=== PATIENT | female | born 1990 | race Caucasian/White ===

== ENCOUNTER → 2016-05-27 | Outpatient (CLI) | payer OTHER ==
[~2016-05-27] MED LIST: ALBU17IN INH; AMOX875T2 PO; BACITAB3 PO; IBUP80TA PO; LEVO75TA4 PO; PERCOCET PO; PRENTAB13 PO; RANI1TAB6 PO; VITAPRTA PO; ZOFR4TAB3 PO
[2016-05-27 10:26] LABS: FREE T4 1.2 NG/DL (0.76-1.46)
== END ==
LOC: M LAB 08:26
PROVIDERS: ATTEND Nurse Practitioner Family
DX: E03.9 Hypothyroidism, unspecified (principal); Z13.220 Encounter for screening for lipoid disorders

== ENCOUNTER → 2016-06-27 | Outpatient (CLI) | payer OTHER ==
--- NOTE | 2016-06-27 09:43 | REP ---
Clinical: Back pain . Technique: AP, lateral, bilateral oblique, and coned-down views. Findings: Alignment and lordosis is maintained. The vertebral bodies including transverse process and spinous processes are intact and normal. There is no evidence for acute fracture / compression injury or subluxation. No evidence for spondylolysis or spondylolisthesis. No significant degenerative change is noted. Impression: Normal lumbosacral spine radiograph series. Signed by Renzo Stock MD 06/27/2016 09:35 A
--- NOTE | 2016-06-27 09:46 | REP ---
Clinical: thoracic pain. Technique: AP, lateral, and swimmers views. Findings: Frontal view demonstrates approximately 15 degrees of levoconvex scoliosis as measured from the superior endplate of T6 to the superior endplate of L1 and centered at approximately T11 level. Vertebral bodies are intact. No acute fracture / compression injury or subluxation. Paravertebral soft tissues are normal. Impression: Moderate levoconvex scoliosis. Signed by Renzo Stock MD 06/27/2016 09:37 A
== END ==
LOC: M RAD 08:48
PROVIDERS: ATTEND Nurse Practitioner Family
DX: M41.9 Scoliosis, unspecified (principal); M54.6 Pain in thoracic spine; M54.42 Lumbago with sciatica, left side

== ENCOUNTER 2016-10-01 07:20 | Outpatient (RCR) | payer OTHER | END 2016-10-02 | LOC: M PT 07:20 | PROVIDERS: ATTEND Nurse Practitioner Family | DX: Z51.89 Encounter for other specified aftercare (principal); M54.6 Pain in thoracic spine ==

== ENCOUNTER 2016-10-08 08:21 | Outpatient (RCR) | payer OTHER ==
[~2016-10-08 08:21] MED LIST changes: +BACITAB PO; -BACITAB3 PO; -PRENTAB13 PO; +PRENTAB20 PO
== END 2016-11-01 ==
LOC: M PT 08:21
PROVIDERS: ATTEND Nurse Practitioner Family
DX: Z51.89 Encounter for other specified aftercare (principal); M54.6 Pain in thoracic spine

== ENCOUNTER → 2017-02-26 | Outpatient (REF) | payer OTHER ==
[2017-02-26 12:29] LABS: FREE T4 1.17 NG/DL (0.76-1.46)
== END ==
LOC: M SFHCPLAZ 07:49
PROVIDERS: ATTEND Nurse Practitioner Family
DX: E03.9 Hypothyroidism, unspecified (principal)

== ENCOUNTER → 2017-03-21 | Outpatient (CLI) | payer OTHER ==
--- NOTE | 2017-03-24 08:31 | REP ---
MRI lumbar spine without contrast: History: Low back pain with radiculopathy affecting the left lower extremity. Comparison lumbar spine radiographs are from June 27, 2016. Technique: Sagittal and axial T1 and T2-weighted scans are acquired in the usual fashion with and without fat saturation. Sequences include spin echo, turbo spin-echo, and STIR imaging sequences. MRI findings: Lumbar vertebral body heights are preserved and alignment is normal. Disc spaces are maintained in height and signal intensity. Conus medullaris terminates at L1 normal in position and appearance. No extravertebral abnormality is observed. Normal caliber aorta. Axial and sagittal images at L5-S1 demonstrate a central small focal disc protrusion which effaces the ventral epidural fat and subtly indents the ventral margin of the thecal sac. No nerve root compression is seen. Facets are unremarkable. Pedicles and posterior elements are intact. There is no evidence of spondylolysis or spondylolisthesis. At L4-5, there is no focal disc protrusion. No neural foraminal narrowing or central canal stenosis is seen. At L3-4, L2-3, and L1-2, no abnormality is seen. Impression: Small central disc protrusion at L5-S1. Otherwise negative. Signed by William Fitzgerald MD 03/24/2017 10:52 A
== END ==
LOC: M RAD 15:39
PROVIDERS: ATTEND Nurse Practitioner Family
DX: M51.27 Other intervertebral disc displacement, lumbosacral region (principal); M54.17 Radiculopathy, lumbosacral region

== ENCOUNTER → 2018-02-16 | Outpatient (CLI) | payer OTHER ==
[2018-02-16 09:11] LABS: PROGESTERONE 20.9 NG/ML
[2018-02-16 09:11] LABS: ESTRADIOL 189.9 PG/ML
== END ==
LOC: M LAB 07:13
DX: E28.9 Ovarian dysfunction, unspecified (principal)
CPT/HCPCS: 84443

== ENCOUNTER → 2018-02-20 | Outpatient (CLI) | payer OTHER ==
[2018-02-20 08:19] LABS: HCG, SERUM QUANTITATIVE 139 MIU/ML
[2018-02-20 10:16] LABS: PROGESTERONE 23.6 NG/ML
== END ==
LOC: M LAB 07:01
DX: E28.9 Ovarian dysfunction, unspecified (principal)
CPT/HCPCS: 84702

== ENCOUNTER 2018-05-15 14:39 | Emergency (ER) | payer OTHER ==
[~2018-05-15] VITALS: Ht 172.7 cm; Wt 80.9 kg
[~2018-05-15 14:39] MED LIST changes: +ZOFR4TAB14 PO; -ZOFR4TAB3 PO
[2018-05-15 15:36] LABS: BASO % 0.1 % (0.0-1.0); EOS # 0.2 10^3/uL (0.0-0.50); EOS % 2.1 % (0.0-3.0); HEMATOCRIT 39.3 % (36.0-47.0); HEMOGLOBIN 13.3 g/dl (12.0-15.5); LYMPH % 24.9 % (24.0-44.0); MEAN CORPUSCULAR HEMOGLOBIN 30.2 pg (27.0-33.0); MEAN CORPUSCULAR HGB CONC 33.8 g/dl (32.0-36.5); MEAN CORPUSCULAR VOLUME 89.1 fl (80.0-96.0); MONO # 0.5 10^3/uL (0.0-0.8); MONO % 5.8 % (0.0-5.0); NEUTROPHILS # 5.4 10^3/uL (1.8-7.7); NEUTROPHILS % 66.7 % (36.0-66.0); PLATELET COUNT, AUTOMATED 314 10^3/uL (150-450); RED BLOOD COUNT 4.41 10^6/uL (4.00-5.40); WHITE BLOOD COUNT 8.1 10^3/uL (4.0-10.0)
[2018-05-15] MEDS ORDERED: MACR100C43 PO (16:41)
[2018-05-15 16:51] VITALS: BP 124/66
--- NOTE | 2018-05-15 17:00 | REP ---
Obstetric sonography: History: Vaginal bleeding. Sonographic findings: Scanning through the gravid uterus demonstrates a viable single intrauterine gestation in oblique, head to the maternal right lie. motion is observed and heart rate is recorded at 163 beats per minute. An anterior low lying placenta is seen without evidence of abruption. The tip of the placenta is located 0.8 cm from the internal cervical os on transvaginal imaging. Amniotic fluid is subjectively normal. No extrauterine abnormalities observed. It is too early for routine anatomic survey. Biometry chart: BPD 3.5 cm 16 weeks 6 days Head circumference 13.3 cm 16 weeks 6 days Abdominal circumference 10.8 cm 16 weeks 5 days Femur length 2.2 cm 16 weeks 5 days Humeral length 2.3 cm 16 weeks 6 days HC/AC ratio normal 1.24, cephalic index normal 0.73, estimated weight 167 grams, 0 pounds 5 ounces, 76 percentile for 16 weeks 0 days. Impression: Viable single intrauterine gestation at 16 weeks 6 days by today's composite sonographic criteria. AVIVA by today's sonography October 24, 2018. Low-lying anterior placenta is seen, 0.8 cm from the internal cervical os on transvaginal imaging. No evidence of abruption. Electronically Signed by William Fitzgerald MD 05/15/2018 06:58 P
== END 2018-05-15 16:54 | disposition home or self-care (01) ==
LOC: M ED 14:39
DX: O44.43 Low lying placenta NOS or without hemorrhage, third trimester (principal); O23.42 Unspecified infection of urinary tract in pregnancy, second trimester; O99.512 Diseases of the respiratory system complicating pregnancy, second trimester; J45.909 Unspecified asthma, uncomplicated; O99.282 Endocrine, nutritional and metabolic diseases complicating pregnancy, second trimester; E03.9 Hypothyroidism, unspecified; O99.612 Diseases of the digestive system complicating pregnancy, second trimester; K21.9 Gastro-esophageal reflux disease without esophagitis; Z88.1 Allergy status to other antibiotic agents; Z3A.16 16 weeks gestation of pregnancy

== ENCOUNTER → 2018-06-15 | Outpatient (CLI) | payer OTHER ==
[~2018-06-15] MED LIST changes: +MACR100C43 PO
--- NOTE | 2018-06-15 19:19 | REP ---
Obstetric ultrasound for anatomy: There is a single intrauterine gestation in a vertex presentation. There is motion. The heart rate is 149 beats per minute. The placenta is anterior without previa or abruptio. The placenta is grade 1 maturity. The amniotic fluid volume subjectively is normal. The cervix measures 2.7 cm length. By the ultrasound today the gestational age is 21 weeks 2 days/AVIVA 10/24/2018. Gestational age by the first ultrasound is 21 weeks 2 days. S/AVIVA 10/24/2018. Gestational age by LMP is 20 weeks 3 days/AVIVA 10/30/2018. weight is 406 grams (0 pounds, 14 ounces). This is the 75th percentile for 20 weeks 3 days. The following anatomic structures are identified and are unremarkable: Intracranial lateral ventricles, choroid plexus, cavum septum pellucidum, facial profile, upper lip, lungs, four-chamber heart, cardiac right and left ventricular outflow tracts, diaphragm, stomach, cord insertion, three-vessel cord, kidneys, bladder and upper lower extremities. Suboptimally demonstrated because of position are the intracranial posterior fossa and the spine. A followup study dedicated to these structures might be considered. Otherwise, there are no anomalies. Electronically Signed by Wilbur Zepeda MD 06/15/2018 07:11 P
== END ==
LOC: M RAD 16:29
PROVIDERS: ATTEND Specialist
DX: Z34.82 Encounter for supervision of other normal pregnancy, second trimester (principal); Z3A.21 21 weeks gestation of pregnancy

== ENCOUNTER → 2018-07-10 | Outpatient (CLI) | payer OTHER ==
--- NOTE | 2018-07-10 13:22 | REP ---
Obstetric ultrasound for follow-up of anatomy: Comparison is 06/15/2018. On the comparison study the intracranial posterior fossa and the spine were not optimally demonstrated because of position. On the study today the posterior fossa including the cerebellum and cisterna magna are adequately demonstrated and are unremarkable. The spine is adequately demonstrated and unremarkable. On the study today the choroid plexus is suboptimally demonstrated but was adequately demonstrated previously and unremarkable. The facial profile is suboptimally demonstrated was adequately demonstrated previously and was unremarkable. The kidneys were suboptimally demonstrated but were at the optimally demonstrated previously and were unremarkable. The lower extremities are suboptimally demonstrated but were optimally demonstrate previous and unremarkable. There are no anomalies. There is a single fetus in a footling breech presentation. There is movement and cardiac activity. The heart rate is 149 beats per minute. The placenta is anterior without previa or abruptio with grade 1 maturity. The amniotic fluid volume subjectively is normal. The cervix measures 2.6 cm length. Gestational age by today's ultrasound 24 weeks 6 days/AVIVA 10/24/2018. Gestational age by first ultrasound is 24-week 6 days/AVIVA 10/24/2018. Gestational age by LMP is 24-week 0 days/AVIVA 10/30/2018. weight is 720 grams/1 pound, 9 ounces. This is the 64 percentile for 24 weeks 0 days. Electronically Signed by Wilbur Zepeda MD 07/10/2018 01:12 P
== END ==
LOC: M RAD 12:03
PROVIDERS: ATTEND Specialist
DX: O09.812 Supervision of pregnancy resulting from assisted reproductive technology, second trimester (principal); Z3A.24 24 weeks gestation of pregnancy

== ENCOUNTER → 2018-07-29 | Outpatient (CLI) | payer OTHER ==
[2018-07-29 11:12] LABS: HEMATOCRIT 37.2 % (36.0-47.0); HEMOGLOBIN 12.3 g/dl (12.0-15.5); MEAN CORPUSCULAR HEMOGLOBIN 29.9 pg (27.0-33.0); MEAN CORPUSCULAR HGB CONC 33.1 g/dl (32.0-36.5); MEAN CORPUSCULAR VOLUME 90.5 fl (80.0-96.0); PLATELET COUNT, AUTOMATED 238 10^3/uL (150-450); RED BLOOD COUNT 4.11 10^6/uL (4.00-5.40); WHITE BLOOD COUNT 7.1 10^3/uL (4.0-10.0)
[2018-07-29 12:23] LABS: FREE T4 0.98 NG/DL (0.76-1.46); THYROID STIMULATING HORMONE 1.03 uIU/ML (0.358-3.740)
== END ==
LOC: M LAB 09:27
PROVIDERS: ATTEND Advanced Practice Midwife
DX: O09.812 Supervision of pregnancy resulting from assisted reproductive technology, second trimester (principal)

== ENCOUNTER → 2018-09-22 | Outpatient (CLI) | payer OTHER ==
--- NOTE | 2018-09-22 07:51 | REP ---
Clinical: Growth evaluation. Comparison: 07/10/2018 . Findings: Examination demonstrates a single live intrauterine in cephalic presentation. motion is identified by technologist. Placenta is noted anterior and grade grade 1 without evidence for placenta previa or abruption. Amniotic fluid volume is normal. Cervix measures 3.3 cm in length and appears closed. No evidence for nuchal cord. Gestational age by LMP 34 weeks 4 days with AVIVA 10/30/2018 . Gestational age by current measurements 34 weeks 5-day with AVIVA is 10/29/2018 . FHR equals 144 beats per minute. BPD 8.6 cm 34 weeks 6 days HC 31.2 cm 34 weeks 6 days AC 30.1 cm 34 weeks 1 day FL 6.8 cm 35 weeks 0 days HL 6.0 cm 35 weeks 0 days HC/AC ratio 1.04 Estimated weight 2443 grams ( 45th percentile). Amniotic fluid index: 8.7 cm (8.0 - 24.9) Umbilical cord SD ratio: 2.52 (2.00 - 3.00) Impression: Live intrauterine in cephalic presentation demonstrating appropriate interval growth. No gross abnormalities are identified. Electronically Signed by Renzo Stock MD 09/22/2018 07:42 A
== END ==
LOC: M RAD 06:17
PROVIDERS: ATTEND Advanced Practice Midwife
DX: O26.843 Uterine size-date discrepancy, third trimester (principal); Z3A.00 Weeks of gestation of pregnancy not specified

== ENCOUNTER → 2018-10-08 | Outpatient (REF) | payer OTHER ==
[~2018-10-08] MED LIST changes: +COLA100C5 PO; +LEVO50TA5 PO; +NON-325T5 PO; +PANT20TA2 PO
== END ==
LOC: M LAB REF 16:54
PROVIDERS: ATTEND Obstetrics & Gynecology
DX: Z34.83 Encounter for supervision of other normal pregnancy, third trimester (principal)

== ENCOUNTER 2018-10-12 08:57 | Inpatient (IN) | payer OTHER ==
[2018-10-12] VITALS (49 sets, daily range): BP systolic 107–163; BP diastolic 58–113
[~2018-10-12] VITALS: Ht 172.7 cm; Wt 104.4 kg
[2018-10-12] MEDS: KETOROLAC 30 MG/ML VIAL (J1885) IV SCH (03:12)
[~2018-10-12 08:57] MED LIST changes: -COLA100C5 PO; -LEVO50TA5 PO; -NON-325T5 PO; -PANT20TA2 PO
[2018-10-12] MEDS ORDERED: PANT20TA2 PO (09:25)
[2018-10-12] MEDS ORDERED: NON-325T5 PO (09:25)
[2018-10-12] MEDS ORDERED: LEVO50TA5 PO (09:25)
[2018-10-12 09:33] LABS: HEMATOCRIT 38.2 % (36.0-47.0); HEMOGLOBIN 12.9 g/dl (12.0-15.5); MEAN CORPUSCULAR HGB CONC 33.8 g/dl (32.0-36.5); MEAN CORPUSCULAR VOLUME 88.8 fl (80.0-96.0); PLATELET COUNT, AUTOMATED 245 10^3/uL (150-450); WHITE BLOOD COUNT 8.3 10^3/uL (4.0-10.0)
[2018-10-12 09:58] LABS: ALT/SGPT 18 U/L (12-78); BILIRUBIN,TOTAL 0.1 MG/DL (0.2-1.0); CREATININE FOR GFR 0.79 MG/DL (0.55-1.30); GLOMERULAR FILTRATION RATE > 60.0 (>60); LDH LACTATE DEHYDROGENASE 220 U/L (84-246); URIC ACID 6.5 MG/DL (2.6-6.0)
[2018-10-12] MEDS ORDERED: miSOPROStol 50 MCG 1/2 TAB (S0191) PO SCH (10:00)
[2018-10-12] MEDS ORDERED: OXYTOCIN DRIP 30 UNITS in APPROPRIATE DILUENT 1 EA IV SCH ×2 (10:00→20:00)
[2018-10-12] MEDS: LR 1,000 ML IV SCH ×3 (10:23→21:48)
[2018-10-12] MEDS ORDERED: MAGNESIUM *L&D* 4 GM/100 ML BAG (40MG/ML) (J3475) IV ONE (11:30)
[2018-10-12] MEDS ORDERED: MAGNESIUM SULFATE 4% INJ 20GM/500ML (40MG/ML) (J3475) As Ordered ONE (11:33)
[2018-10-12] MEDS ORDERED: MAG Sulf (OBGYN) 20GM/500ML 20,000 MG in APPROPRIATE DILUENT 1 EA IV SCH (12:00)
--- NOTE | 2018-10-12 12:11 | HPE ---
DATE OF ADMISSION: 10/12/2018 HISTORY OF PRESENT ILLNESS: Patient is a 27-year-old female who is a 2, para 1-0-0-1 at 37 weeks 3 days with an EDG of 10/30/2018 based off of her first trimester ultrasound. Her is IVF. Her has been complicated by hypothyroidism and history of cervical shortening with normal cervical length. Her also had been complicated by low lying placenta with first and second trimester bleeding that has resolved. Patient presents to the office today with complaints of a headache that has been ongoing for about two weeks and today is not resolved with Tylenol and decreased movement. She was monitored at the office and sent over the labor and delivery due to an elevated blood pressure. ALLERGIES: 1. CECLOR. 2. ROCEPHIN. CURRENT MEDICATIONS: - vitamin - levothyroxine 50 mg - Ventolin MEDICAL PROBLEMS: Asthma and meningitis as a child. CURRENT MEDICAL PROBLEMS: Asthma. Seasonal allergies. Hypothyroidism. SURGICAL HISTORY: Hernia repair. Cholecystectomy in 2014. FAMILY HISTORY: Anxiety, lupus, seizures, depression, heart disease. SOCIAL HISTORY: Patient is . She is a former smoker, quit in 2012. She denies any alcohol use or abuse, drug abuse or use. She denies any history of physical, emotional or sexual abuse. She has no history of sexually transmitted infections. PAST MEDICAL PREGNANCIES: March 2015 at 39 weeks, she had a female by vaginal delivery weighing 7 pounds 3 ounces, complicated by a short cervix, subchorionic hematoma and pancreatitis. LABS: Blood type is B negative. Her initial hemoglobin and hematocrit is 13.8 and 39.9, with platelets of 336. VDRL is nonreactive. Rubella is immune. Her urine had no growth. Hepatitis B surface antigen is negative. HIV is negative. Gonorrhea and chlamydia negative. Hepatitis C is negative. 1 hour glucose is 94. Hemoglobin and hematocrit on 07/29/2018 of 12.3 and 37.2, platelets of 238. She received RhoGAM on 08/17/2018. Her TSH and free T4 have been within normal range. Her Group B Streptococcus (GBS) is negative. VITAL SIGNS: Blood pressure is 160/113, heart rate 79, temperature 99.5, respiratory rate is 18. Repeat blood pressure is 145/92 with a heart rate of 80. Labs upon arrival: Her hemoglobin and hematocrit is 12.9 and 38.2. Her platelet count is 245. Her AST and ALT are within normal range. Her uric acid is 6.5. The spot urine ratio is 7.6. heart rate 150, moderate variability, positive accelerations, no decelerations. Contractions are occasional. STERILE VAGINAL EXAM: Cervix is 3 cm dilated, 90% effaced, -1 station and moderate amount of blood show. PHYSICAL ASSESSMENT: General: A+Ox3 Respiratory: regular rate with no use of accessory muscles. Lungs clear bilaterally. Cardiovascular: regular rate and rhythm Abdomen: Gravid and cephalic presentation noted via Lior's Extremities: +2 pitting edema. No clonus. +2 reflexes. ASSESSMENT: Intrauterine at 37 weeks 3 days gestation, preeclampsia with severe features, category 1 heart rate tracing, negative GBS. PLAN: Admit patient to labor and delivery after consulting with Dr. Montoya. Out of bed with bathroom privileges. Clear liquid diet. Saline lock and labs per unit protocol. IV Pitocin to be started per order. Anesthesia consult per patient's request. Will consider magnesium oxide during labor or post delivery after consulting with Dr. Montoya. Anticipate cervical change and spontaneous vaginal delivery. MTDD
--- NOTE | 2018-10-12 12:15 | IPNPDOC ---
Obstetrical Progress Note Date of Service Oct 12, 2018 Subjective Patient still reports a slight headache of 2/10. Objective Vital Signs Date Time Temp Pulse Resp B/P (MAP) Pulse Ox O2 Delivery O2 Flow Rate FiO2 10/12/18 12:01 94 135/92 (106) 10/12/18 11:46 99.1 16 10/12/18 09:29 Room Air Vital Signs Label Value Date Time Blood Pressure Assessment 156/109 (125) 10/12/18 1046 Source Automatic Cuff (NIBP) Blood Pressure Assessment 152/103 (119) 10/12/18 1101 Source Automatic Cuff (NIBP) Blood Pressure Assessment 163/105 (124) 10/12/18 1116 Source Automatic Cuff (NIBP) Assessment Heart Rate (FHR): 140 Variability: Moderate Accelerations: Positive Decelerations: None Heart Rate Tracing: Category I Tocometer Contractions: Yes Frequency: irregular Assessment and Plan Status: Reassuring Group B Streptococcus: Negative Anticipate: Vaginal Delivery Additional Comments After reviewing blood pressures, symptoms, and labs with Dr. Montoya the plan was made to start Magnesium per order for seizure prevention. Reviewed with patient and plan of care. All questions answered. 4 gram loading dose followed by 2 grams per hour. SANDRINE PALACIO CNM Oct 12, 2018 12:15
[2018-10-12] MEDS ORDERED: ACETAMINOPHEN 500 MG TAB PO PRN ×2 (13:15→19:45)
--- NOTE | 2018-10-12 15:29 | IPNPDOC ---
Obstetrical Progress Note Date of Service Oct 12, 2018 Subjective Patient was given Tylenol for a headache of 5/10 and reports it is back down to a tolerable 2/10. She reports feeling her contractions and is considering an epidural. Objective Vital Signs Date Time Temp Pulse Resp B/P (MAP) Pulse Ox O2 Delivery O2 Flow Rate FiO2 10/12/18 14:01 98.9 78 16 140/87 (104) 10/12/18 09:29 Room Air Assessment Heart Rate (FHR): 130 Variability: Moderate Accelerations: Positive Decelerations: None Heart Rate Tracing: Category I Tocometer Contractions: Yes Frequency: regular, every 1-5 min. Sterile Vaginal Examination Dilation: 4 cm Effacement (%): 90% Station: -1 Cervical Consistency: Soft Cervical Position: Anterior Postion/Presentation: Cephalic presentation Assessment and Plan Status: Reassuring Group B Streptococcus: Negative Anticipate: Vaginal Delivery Additional Comments IV Pitocin is at 16 mu/min. AROM to a moderate amount of clear/bloody fluid. Will continue to monitor. Urine has been 50 to less than 50 cc/hr. SANDRINE PALACIO CNM Oct 12, 2018 15:29
[2018-10-12 16:02] LABS: HEMATOCRIT 37.6 % (36.0-47.0); HEMOGLOBIN 12.6 g/dl (12.0-15.5); MEAN CORPUSCULAR HEMOGLOBIN 29.8 pg (27.0-33.0); MEAN CORPUSCULAR HGB CONC 33.5 g/dl (32.0-36.5); MEAN CORPUSCULAR VOLUME 88.9 fl (80.0-96.0); PLATELET COUNT, AUTOMATED 237 10^3/uL (150-450); RED BLOOD COUNT 4.23 10^6/uL (4.00-5.40); WHITE BLOOD COUNT 11.4 10^3/uL (4.0-10.0)
[2018-10-12] MEDS ORDERED: FENTANYL 2MCG/ML ROPIVACAINE 0.2% IN 0.9% NACL 100ML IVBAG As Ordered ONE (16:24)
--- NOTE | 2018-10-12 16:27 | IPNPDOC ---
Obstetrical Progress Note Date of Service Oct 12, 2018 Subjective Patient reports feeling rectal pressure. Requesting epidural. Objective Vital Signs Date Time Temp Pulse Resp B/P (MAP) Pulse Ox O2 Delivery O2 Flow Rate FiO2 10/12/18 14:01 98.9 78 16 140/87 (104) 10/12/18 09:29 Room Air Assessment Heart Rate (FHR): 120 Variability: Moderate Accelerations: Positive Decelerations: Variable Heart Rate Tracing: Category II Tocometer Contractions: Yes Frequency: regular Sterile Vaginal Examination Dilation: 6 cm Effacement (%): 100% Station: 0 Assessment and Plan Status: Reassuring Group B Streptococcus: Negative Anticipate: Vaginal Delivery Additional Comments IV Pitocin at 18 mu/min. Moderate amount of bloody show with cervical exam. SANDRINE PALACIO CNM Oct 12, 2018 16:27
[2018-10-12] MEDS ORDERED: EPIDURAL COMMENT XX SCH (17:15)
[2018-10-12] MEDS ORDERED: EPIDURAL/PCA KEYS XX PRN (17:15)
[2018-10-12] MEDS ORDERED: REFRIGERATOR IV KEYS XX PRN (17:15)
[2018-10-12] MEDS ORDERED: NALOXONE INJ 0.4 MG/1 ML VIAL (J2310) IV PRN ×3 (17:15→19:05)
[2018-10-12] MEDS ORDERED: diphenhydrAMINE INJ 50MG/ML VIAL (J1200) IV PRN (17:15)
[2018-10-12] MEDS ORDERED: FENTANYL/ROPIVACAINE/NACL BAG 100 ML EPIDURAL SCH (17:15)
[2018-10-12] MEDS ORDERED: ePHEDrine SULFATE 25 MG/5 ML(5MG/ML) SYRINGE IV PRN (17:15)
[2018-10-12] MEDS ORDERED: LACTATED RINGER'S 1000 ML IV PRN (17:15)
[2018-10-12] MEDS ORDERED: ONDANSETRON 4MG/2ML VIAL (J2405) IV PRN ×2 (17:15→20:30)
[2018-10-12] MEDS ORDERED: BICITRA 30ML SOLN UDC As Ordered ONE (18:29)
[2018-10-12] MEDS ORDERED: OXYTOCIN INJ 10 UNITS/ML VIAL (J2590) As Ordered ONE (18:30)
[2018-10-12] MEDS ORDERED: ceFAZolin 2 GM/D5W 50 ML IV BAG (J0690 PER 500MG) As Ordered ONE (18:31)
[2018-10-12] MEDS ORDERED: LIDOCAINE 2% W/EPIN INJ 20ML **PRES FREE As Ordered ONE (18:31)
[2018-10-12] MEDS ORDERED: MORPHINE PRES-FREE INJ 10 MG/10 ML VIAL (J2274) As Ordered ONE (18:32)
[2018-10-12] MEDS ORDERED: AZITHROMYCIN INJ 500MG VIAL (J0456) As Ordered ONE (18:35)
--- NOTE | 2018-10-12 18:43 | IPNPDOC ---
Text Note Date of Service The patient was seen on 10/12/18. NOTE Subjective: Patient reports she is comfortable with her epidural. Reports fe eling rectal pressure with her contractions. Objective: Category II FHR: 135, moderate variability, prolonged decelerations into 90's for 6 minutes, variable decelerations, positive accelerations. C ontractions every 2 to 5 minutes. Pitocin is at 18 mu. Patient is fully dilated and +1 station with pushing. With initial pushing bradycardia occurred. FHR improves when patient is positioned on her side and not pushing. Noted a moderate amount of bleeding with vaginal exam while pushing. presentation appears to be OP. Dr. Montoya notified at [phone] for evaluation and assessment. Assessment: IUP at 37.3 weeks gestation, Category II FHR tracing, preeclampsia with severe features, placental abruption Plan: Dr. Montoya to be in for evaluation. Will attempt to push again after HR is stable. VS,Fishbone, I+O VS, Fishbone, I+O Laboratory Tests 10/12/18 09:20 Red Blood Count 4.30, Mean Corpuscular Volume 88.8, Mean Corpuscular Hemoglobin 30.0, Mean Corpuscular Hemoglobin Concent 33.8, Red Cell Distribution Width 13.4, Aspartate Amino Transf (AST/SGOT) 28, Alanine Aminotransferase (ALT/SGPT) 18, Lactate Dehydrogenase 220, Total Bilirubin 0.1 L, Uric Acid 6.5 H 10/12/18 15:44 Red Blood Count 4.23, Mean Corpuscular Volume 88.9, Mean Corpuscular Hemoglobin 29.8, Mean Corpuscular Hemoglobin Concent 33.5, Red Cell Distribution Width 13.6 Vital Signs Date Time Temp Pulse Resp B/P (MAP) Pulse Ox O2 Delivery O2 Flow Rate FiO2 10/12/18 14:01 98.9 78 16 140/87 (104) 10/12/18 09:29 Room Air SANDRINE PALACIO CNM Oct 12, 2018 18:43
[2018-10-12] MEDS ORDERED: AZITHROMYCIN INJ 500 MG, VIAL MATE ADAPTER 1 EACH in D5W 250 ML IV ONE (18:45)
[2018-10-12] MEDS ORDERED: dexameTHASONE 4 MG/ML 1ML VIAL (J1100) As Ordered ONE (18:59)
[2018-10-12] MEDS ORDERED: PHENYLephrine HCL 500 MCG/5 ML (100MCG/ML) SYRINGE (J2370) As Ordered ONE (18:59)
[2018-10-12] MEDS ORDERED: ONDANSETRON 4MG/2ML VIAL (J2405) As Ordered ONE ×2 (18:59→22:43)
[2018-10-12] MEDS ORDERED: BICITRA 30ML SOLN UDC PO ONE (19:00)
[2018-10-12] MEDS ORDERED: FAMOTIDINE INJ 20MG/2ML VIAL (S0028) As Ordered ONE (19:02)
[2018-10-12] MEDS ORDERED: NALBUPHINE HCL 10 MG/ML AMP (J2300) IV PRN ×2 (19:05→20:30)
[2018-10-12 19:10] LABS: CORD GAS ABE A -9.1; CORD GAS O2 SAT A 44.2 %; CORD GAS PCO2 A 42.7 mmHg; CORD GAS PH A 7.242 UNITS; CORD GAS PO2 A 22.3 mmHg; CORD GAS SBC A 16.2 MEQ/L; CORD GAS TCO2 A 19.3 MEQ/L
[2018-10-12 19:14] LABS: CORD GAS ABE V -10.4; CORD GAS HCO3 V 15.7 MEQ/L; CORD GAS O2 SAT V 54.2 %; CORD GAS PCO2 V 35.6 mmHg; CORD GAS PH V 7.261 UNITS; CORD GAS PO2 V 25.5 mmHg; CORD GAS SBC V 15.5 MEQ/L; CORD GAS TCO2 V 16.7 MEQ/L
[2018-10-12] MEDS ORDERED: RHOGAM 300 MCG (1500 IU) INJ (J2790) IM SCH (19:45)
[2018-10-12] MEDS ORDERED: MEASLES,MUMPS,RUBELLA VACCINE INJ (MMR-II) (90707) SC SCH (19:45)
[2018-10-12] MEDS ORDERED: DOCUSATE SODIUM 100 MG CAP PO PRN (19:45)
--- NOTE | 2018-10-12 20:02 | NUR ---
Operative Note Date of procedure: 10/12/2018 Procedure: Primary low-transverse section Anesthesia: Epidural with Duramorph Preoperative diagnosis: 37+3 weeks gestation Preeclampsia with severe features Placental abruption Nonreassuring heart rate tracing Postoperative diagnosis: Same as preoperative Indication: Nonreassuring heart rate tracing in the setting of placental abruption Primary surgeon: Bryson Montoya D.O., Livia Gutierrez Equipment Inspector: Alexis Daley CNM (essential role in surgical site exposure and assistance with delivery) Estimated blood loss:700 ml IV fluids administered: 1000 ml crystalloid Drains: Bedolla catheter. Urine output:15 ml Sterling data: Apgars 4 and 9. Birthweight 6lbs 2730g. Female. Cord gases: arterial pH 7.24/-9.1. venous pH 7.26/-10.4 Preoperative/prophylactic antibiotics: Ancef 2 g IV (given within 30 minutes prior to surgical start time). Azithromycin 500mg IV x 1. Intraoperative findings: Large amount of blood clot within uterine cavity noted upon hysterotomy, consistent with placental abruption. Specimen(s): placenta Procedure: The patient was counseled and consented on the risks, benefits, indications and alternatives of the procedure. Informed consent was obtained and placed in the c bautista. She was taken to the operating room with an IV running. She was placed on the operating table. Epidural anesthesia was bolused/administered without any difficulty and found to be adequate. She was placed in the dorsal supine position with a leftward tilt. Sequential compression devices were placed on the lower extremities. A Bedolla catheter was already placed under sterile conditions. She was sterilely prepped and draped. A surgical timeout was performed per protocol. Epidural anesthesia was again found to be adequate. Using the 10 blade a Pfannenstiel incision was performed. The 10 blade was used to dissect down to the level of the rectus sheath fascia. The rectus sheath fas lanette was incised at the midline, and the fascial incision was extended with Pablo scissors. Lizzie clamps were used to grasp the superior and inferior aspect of the fascial incision and the rectus muscle bellies were dissected off sharply and bluntly. The midline was identified and the rectus muscle bellies were manually . The peritoneum was identified and clamped with hemostats and elevated. The peritoneum was then incised with Metzenbaum scissors. Entry into the intraperitoneal cavity was achieved. The peritoneal opening was extended with manual stretch . There was good visualization of both the bladder and the lower uterine segment. The Mobius retractor was placed. The vesicouterine peritoneum was dissected with Metzenbaum scissors and blunt dissection. A low transverse uterine incision was made with a new 10 blade. The hysterotomy was extended with manual stretch. The amniotic sac was protruding and then artificially ruptured. A large amount of blood clot was expressed from the intrauterine cavity. The baby's head delivered through the hysterotomy with ease. The remainder of the body delivered with ease. The cord was doubly clamped and cut and the baby was handed off to awaiting care. See data above. The placenta was manually removed and noted to be fully intact. The uterus was exteriorized. The intrauterine cavity was cleared of all clot and debris with a laparotomy sponge. The hysterotomy was closed with 0 Vicryl in running, locked fashion. A second imbricating closure was performed over the initial layer closure using 0 Vicryl. The hysterotomy was noted to be hemostatic. The posterior cul-de-sac was irrigated and cleared of all clot and debris. The uterus was replaced back into the abdomen. The paracolic gutters were cleared of all clot and debris with damp laparotomy sponges. The hysterotomy is reinspected and noted to be hemostatic. Sponge, needle and instrument counts were correct. The peritoneum was closed with 3-0 Vicryl in running fashion. The rectus muscle bellies were reapproximated with 3-0 Vicryl with a series of interrupted sutures. The rectus muscle bellies were noted to be hemostatic. The fascia was closed with 0 Vicryl in running fashion. Sponge, needle and instrument counts were again correct. The subcutaneous layer was irrigated. Small subcutaneous bleeders were cauterized with Bovie. The subcutaneous layer was reapproximated with 3-0 Vicryl in running fashion. The skin was closed with 3-0 Monocryl in subcuticular fashion. A bandage was placed over the closed incision. The final sponge, instrument and needle count was correct. She tolerated the entire procedure very well. She was transferred to the PACU in good and stable condition. Dr. Bryson Montoya D.O., F.A.C.O.G
[2018-10-12] MEDS ORDERED: KETOROLAC 30 MG/ML VIAL (J1885) As Ordered ONE (20:29)
[2018-10-12] MEDS ORDERED: fentaNYL 100 MCG/2 ML INJECTION (J3010) IV PRN (20:30)
[2018-10-12] MEDS ORDERED: COLA100C5 PO (20:30)
[2018-10-12] MEDS ORDERED: IBUP80TA PO (20:30)
[2018-10-12] MEDS ORDERED: KETOROLAC 30 MG/ML VIAL (J1885) IV PRN (20:30)
[2018-10-12] MEDS ORDERED: PERCOCET PO (20:30)
[2018-10-12] MEDS: MAG Sulf (OBGYN) 20GM/500ML 20,000 MG in APPROPRIATE DILUENT 1 EA IV SCH (21:51)
[2018-10-12] MEDS: METOCLOPRAMIDE INJ 10MG/2ML VIAL (J2765) IV PRN (23:56)
[2018-10-13] VITALS (14 sets, daily range): BP systolic 108–134; BP diastolic 65–88
[2018-10-13] MEDS: diphenhydrAMINE INJ 50MG/ML VIAL (J1200) IV PRN ×2 (01:12→05:02)
[2018-10-13] MEDS: ONDANSETRON 4MG/2ML VIAL (J2405) IV PRN ×2 (01:29→10:38)
[2018-10-13] MEDS: KETOROLAC 30 MG/ML VIAL (J1885) IV SCH ×3 (03:00→16:12)
[2018-10-13] MEDS: METOCLOPRAMIDE INJ 10MG/2ML VIAL (J2765) IV PRN (05:02)
[2018-10-13] MEDS: MAG Sulf (OBGYN) 20GM/500ML 20,000 MG in APPROPRIATE DILUENT 1 EA IV SCH (06:31)
[2018-10-13] MEDS: PERCOCET 5MG/325MG TAB PO PRN ×2 (06:40→20:30)
--- NOTE | 2018-10-13 06:44 | IPNPDOC ---
Progress Note Date of Service: Oct 13, 2018 Day#: 1 Progress Note SUBJECT: Patient is a 27-year-old female who report nausea throughout the night. She has vomited multiple times tonight. She has given multiple doses of Zofran and Reglan. She has received Toradol for pain management. She has now just been able to fall asleep early this morning. OBJECTIVE: VITAL SIGNS: Within normal limits, afebrile. Alert and oriented times three. Breath sounds clear to auscultation. Heart rate: Regular rate and rhythm, no murmurs, rubs or gallops. Abdomen: Fundus firm. Soft. Dressing is intact. Minimal lochia. Extremities: 3+ pitting edema in thighs, legs, and lower extremities. Urine output has been WNL. ASSESSMENT: Day 1 postoperative; preeclampsia with severe features PLAN: Continue with Magnesium sulfate per order until tonight and discontinue. Bedolla to be removed with magnesium. Continue with supportive nursing care. VS, I&O, 24H, Fishbone Vital Signs/I&O Vital Signs Date Time Temp Pulse Resp B/P (MAP) Pulse Ox O2 Delivery O2 Flow Rate FiO2 10/13/18 04:33 98.4 100 16 114/73 (87) 98 Room Air I&O- Last 24 Hours up to 6 AM 10/13/18 06:00 Intake Total 3829.8 ml Output Total 2145 ml Balance 1684.8 ml Laboratory Data 24H LABS Laboratory Tests 2 10/12/18 09:20: Nucleated Red Blood Cells % (auto) 0.0, Glomerular Filtration Rate > 60.0, Creatinine 0.79, Aspartate Amino Transf (AST/SGOT) 28, Alanine Aminotransferase (ALT/SGPT) 18, Lactate Dehydrogenase 220, Total Bilirubin 0.1L, Uric Acid 6.5H, Syphilis Serology NONREACTIVE 10/12/18 09:34: Urine Random Creatinine 271.0, Urine Random Total Protein 2045.0H 10/12/18 09:44: Serology Scanned Report Hepatitis B Testing 10/12/18 15:44: Nucleated Red Blood Cells % (auto) 0.0 10/12/18 19:02: Cord Arterial Blood pH 7.242, Cord Arterial Blood PCO2 42.7, Cord Arterial Blood PO2 22.3, Cord Arterial Blood HCO3 18.0, Cord Arterial Blood Total CO2 19.3, Cord Arterial Blood Base Excess -9.1, Cord Arterial Base Excess (Standard 16.2, Cord Arterial Bld Oxygen Saturation 44.2, Cord Venous Blood pH 7.261, Cord Venous Blood PCO2 35.6, Cord Venous Blood PO2 25.5, Cord Venous Blood HCO3 15.7, Cord Venous Blood Total CO2 16.7, Cord Venous Base Excess (Actual) -10.4, Cord Venous Base Excess (Standard) 15.5, Cord Venous Blood Oxygen Saturation 54.2 CBC/BMP Laboratory Tests 10/12/18 09:20 Red Blood Count 4.30, Mean Corpuscular Volume 88.8, Mean Corpuscular Hemoglobin 30.0, Mean Corpuscular Hemoglobin Concent 33.8, Red Cell Distribution Width 13.4, Aspartate Amino Transf (AST/SGOT) 28, Alanine Aminotransferase (ALT/SGPT) 18, Lactate Dehydrogenase 220, Total Bilirubin 0.1 L, Uric Acid 6.5 H 10/12/18 15:44 Red Blood Count 4.23, Mean Corpuscular Volume 88.9, Mean Corpuscular Hemoglobin 29.8, Mean Corpuscular Hemoglobin Concent 33.5, Red Cell Distribution Width 13.6 SANDRINE PALACIO CNM Oct 13, 2018 06:44
[2018-10-13 07:24] LABS: ALT/SGPT 14 U/L (12-78); BILIRUBIN,TOTAL 0.1 MG/DL (0.2-1.0); CREATININE FOR GFR 0.99 MG/DL (0.55-1.30); GLOMERULAR FILTRATION RATE > 60.0 (>60); LDH LACTATE DEHYDROGENASE 203 U/L (84-246); MAGNESIUM LEVEL 7.4 MG/DL (1.8-2.4); URIC ACID 7.1 MG/DL (2.6-6.0)
[2018-10-13] MEDS: PRENATAL VITAMINS CHEWABLE TABLET PO SCH (09:00)
[2018-10-13 09:21] LABS: HEMATOCRIT 24.8 % (36.0-47.0); HEMOGLOBIN 8.2 g/dl (12.0-15.5); MEAN CORPUSCULAR HEMOGLOBIN 30.6 pg (27.0-33.0); MEAN CORPUSCULAR HGB CONC 33.1 g/dl (32.0-36.5); MEAN CORPUSCULAR VOLUME 92.5 fl (80.0-96.0); PLATELET COUNT, AUTOMATED 217 10^3/uL (150-450); RED BLOOD COUNT 2.68 10^6/uL (4.00-5.40); WHITE BLOOD COUNT 12.8 10^3/uL (4.0-10.0)
[2018-10-13] MEDS: LR 1,000 ML IV SCH (20:30)
[2018-10-13] MEDS ORDERED: PROMETHAZINE INJ 25 MG/ML VIAL (J2550) IV PRN (21:30)
[2018-10-13] MEDS ORDERED: ONDANSETRON 4MG/2ML VIAL (J2405) IV PRN (21:30)
[2018-10-13] MEDS: IBUPROFEN 800 MG TAB PO SCH (22:21)
[2018-10-14] MEDS: PERCOCET 5MG/325MG TAB PO PRN ×4 (01:52→19:50)
[2018-10-14 02:00] VITALS: BP 121/55
[2018-10-14 06:00] VITALS: BP 117/56
[2018-10-14] MEDS: IBUPROFEN 800 MG TAB PO SCH ×3 (06:04→22:05)
--- NOTE | 2018-10-14 07:45 | NUR ---
Postoperative Day 2 Status post primary low transverse section, uncomplicated. Indication: placental abruption/NRFHR, severe pre-e Subjective Pain is well controlled. Lochia is decreasing and minimal. Voiding spontaneously. Tolerating a regular diet. Ambulating without any assistance. Denies any subjective fever, chills, nausea, vomiting, headache, visual changes, shortness of breath, chest pain. Objective Vitals: Normotensive, normal heart rate, afebrile, adequate urine output. Heart: regular, rate, and rhythm. no murmurs/gallops/rubs Lungs: clear to auscultation bilaterally, no wheezes/crackles/rales/ronchi Abd: soft, nontender, nondistended, uterine fundus is 2cm below umbilicus and firm Incision: clean, dry, intact Ext: no significant edema, nontender, negative Charlie's bilaterally. Assessment/Plan: Postoperative day 2 status post primary low transverse section. Recovering well. Hemodynamically stable, afebrile, good pain control. -Routine care -Discharge to home tomorrow -Routine infectious, fever, pain, and bleeding precautions reviewed -Incision/wound care precautions reviewed. Teto NewbyO., F.A.C.O.G.
[2018-10-14] MEDS: PRENATAL VITAMINS CHEWABLE TABLET PO SCH (08:05)
[2018-10-14 10:07] VITALS: BP 108/65
[2018-10-14] MEDS ORDERED: CALCIUM CARBONATE 500 MG CHEW U/D PO PRN (12:00)
[2018-10-14] MEDS: FAMOTIDINE 20 MG TAB PO SCH ×2 (12:55→22:05)
[2018-10-14] MEDS: LR 1,000 ML IV SCH (14:00)
[2018-10-14 17:59] VITALS: BP 124/78
[2018-10-15] MEDS: PERCOCET 5MG/325MG TAB PO PRN ×3 (01:17→11:44)
[2018-10-15] MEDS ORDERED: LEVOTHYROXINE 50MCG TABLET (0.05MG) PO SCH (06:00)
[2018-10-15 06:26] VITALS: BP 114/73
[2018-10-15] MEDS: IBUPROFEN 800 MG TAB PO SCH (06:41)
--- NOTE | 2018-10-15 07:20 | DSES ---
DATE OF ADMISSION: 10/12/2018 DATE OF DISCHARGE: 10/15/2018 DISCHARGE DIAGNOSES: Primary section postop day #3 stable condition. Pre-eclampsia with severe features resolving. SURGEON: Dr. Bryson Montoya. [employer] CONSULTANT: Ashley Daley, certified nurse critical care transport nurse. HISTORY: Janiya is a 27-year-old 2, para 2-0-0-2 now. She was admitted to labor and delivery for induction of labor due to pre-eclampsia with severe features. IV Pitocin was used and labor did ensue. She used an epidural for her labor coping. She underwent a primary section due to heart rate abnormality during labor with placental abruption. She delivered a 6 pounds female, 2730 grams, 4 and 9. Estimated blood loss 700 mL. The surgery was uncomplicated. Postoperative course complicated by pain management. She now reports her pain as well controlled with oral Percocet and ibuprofen. She denies headaches, visual disturbances, epigastric pain and right upper quadrant discomfort. She has been out of bed for self care, chelly care and infant care. She is tolerating oral fluids as well as a regular diet. She is voiding without difficulty and passing flatus. OBJECTIVE: Temperature 97.9, pulse 89, respirations 18, blood pressure is 114/73. She is alert and oriented times three. She is smiling and talkative. Breasts are soft, nontender. Abdomen: Fundus firm at umbilicus. Incision with dressing applied. No drainage noted. Perineum is intact. Lochia rubra scant. PLAN: Discharge the patient home today. Prescriptions have been E-prescribed to the patient's pharmacy for ibuprofen 800 mg by mouth every 8 hours as needed for pain Percocet 5/325 one to two tablets by mouth every 6 hours as needed for pain. She is to have a 2-week incision check at [facility] and 8-week visit. I did review discharge instructions to include breast care, incision care, chelly care, pelvic rest. Activity and lifting restrictions, danger signs to report to her provider and access to care. The patient has all her questions answered and desires to be discharged home today.
[2018-10-15] MEDS: PRENATAL VITAMINS CHEWABLE TABLET PO SCH (08:26)
[2018-10-15] MEDS: FAMOTIDINE 20 MG TAB PO SCH (08:27)
== END 2018-10-15 11:55 | disposition home or self-care (01) | DRG 540 ==
LOC: M LDO 08:57 → M LDI 09:32 → M OBS 10-13 14:20
PROVIDERS: ADMIT Advanced Practice Midwife; ATTEND Obstetrics & Gynecology
PROC: 10907ZC Drainage of Amniotic Fluid, Therapeutic from Products of Conception, Via Natural or Artificial Opening (ICD-10-PCS; 2018-10-12)
PROC: 10D00Z1 Extraction of Products of Conception, Low, Open Approach (ICD-10-PCS; 2018-10-12)
PROC: 3E033VJ Introduction of Other Hormone into Peripheral Vein, Percutaneous Approach (ICD-10-PCS; principal; 2018-10-12 19:15)
DX: O14.14 Severe pre-eclampsia complicating childbirth (principal); Z3A.37 37 weeks gestation of pregnancy; O99.284 Endocrine, nutritional and metabolic diseases complicating childbirth; E03.9 Hypothyroidism, unspecified; O76 Abnormality in fetal heart rate and rhythm complicating labor and delivery; O45.93 Premature separation of placenta, unspecified, third trimester; Z37.0 Single live birth

== ENCOUNTER → 2018-10-26 | Outpatient (REF) | payer OTHER ==
[~2018-10-26] MED LIST changes: +COLA100C5 PO; +LEVO50TA5 PO; +NON-325T5 PO; +PANT20TA2 PO
== END ==
LOC: M LAB REF 12:54
PROVIDERS: ATTEND Advanced Practice Midwife
DX: R30.0 Dysuria (principal)

== ENCOUNTER → 2019-05-17 | Outpatient (REF) | payer OTHER ==
[~2019-05-17] MED LIST changes: +RANI-397 PO; -RANI1TAB6 PO
[2019-05-17 12:08] LABS: APPEARANCE, URINE CLEAR (CLEAR); BACTERIA, URINE AUTO NEGATIVE (NEGATIVE); BILIRUBIN, URINE AUTO NEGATIVE (NEGATIVE); BLOOD, URINE BLOOD 1+ (NEGATIVE); COLOR, URINE YELLOW (YELLOW); GLUCOSE, URINE (UA) AUTO NEGATIVE (NEGATIVE); KETONE, URINE AUTO NEGATIVE (NEGATIVE); LEUKOCYTE ESTERASE, URINE AUTO NEGATIVE (NEGATIVE); MUCUS, URINE SMALL (NEGATIVE); NITRITE, URINE AUTO NEGATIVE (NEGATIVE); PROTEIN, URINE AUTO NEGATIVE (NEGATIVE); RBC, URINE AUTO 4 /HPF (0-3); SPECIFIC GRAVITY URINE AUTO 1.018 (1.002-1.035); SQUAMOUS EPITHELIAL CELL UR AU 0 /HPF (0-6); UROBILINOGEN, URINE AUTO 0.2 mg/dL (0.0-2.0); WBC, URINE AUTO 0 /HPF (0-3)
== END ==
LOC: M LAB REF 11:26
PROVIDERS: ATTEND Physician Assistant Medical
DX: N39.0 Urinary tract infection, site not specified (principal)

== ENCOUNTER → 2019-12-31 | Outpatient (CLI) | payer OTHER ==
[~2019-12-31] MED LIST changes: -PANT20TA2 PO; +PANT20TA6 PO
[2019-12-31 15:21] LABS: ALBUMIN 3.7 GM/DL (3.2-5.2); ALT/SGPT 114 U/L (12-78); BILIRUBIN,TOTAL 0.3 MG/DL (0.2-1.0); BLOOD UREA NITROGEN 7 MG/DL (7-18); CALCIUM LEVEL 8.7 MG/DL (8.5-10.1); CARBON DIOXIDE LEVEL 26 MEQ/L (21-32); CHLORIDE LEVEL 107 MEQ/L (98-107); GLOMERULAR FILTRATION RATE > 60.0 (>60); GLUCOSE, FASTING 72 MG/DL (70-100); POTASSIUM SERUM 4.5 MEQ/L (3.5-5.1); SODIUM LEVEL 139 MEQ/L (136-145); THYROID STIMULATING HORMONE 0.742 uIU/ML (0.358-3.740); TOTAL PROTEIN 7.3 GM/DL (6.4-8.2)
[2019-12-31 15:22] LABS: TOTAL 25(OH) VITAMIN D 24.1 NG/ML (30.0-100.0)
== END ==
LOC: M PLALAB 12:03
PROVIDERS: ATTEND Nurse Practitioner Adult Health
DX: E03.9 Hypothyroidism, unspecified (principal)

== ENCOUNTER → 2020-06-28 | Outpatient (REF) | payer OTHER ==
[~2020-06-28] MED LIST changes: +ACET-838 PO; -NON-325T5 PO
[2020-06-28 11:31] LABS: FREE T4 1.18 NG/DL (0.76-1.46); THYROID STIMULATING HORMONE 0.939 uIU/ML (0.358-3.740)
== END ==
LOC: M SFHCPLAZ 08:18
PROVIDERS: ATTEND Nurse Practitioner Adult Health
DX: E03.9 Hypothyroidism, unspecified (principal); E55.9 Vitamin D deficiency, unspecified